=== PATIENT | female | born 1975 | race Hispanic/Latino ===

== ENCOUNTER 2017-12-12 14:45 | Emergency (ER) | payer SELFPAY ==
[2017-12-12] MEDS ORDERED: CATAPRES ONE (15:00)
[2017-12-12] MEDS ORDERED: CATAPRES PO ONE (15:00)
[2017-12-12 15:22] LABS: Basophils # (Auto) 0.1 K/mm3 (0.0-0.1); Basophils % (Auto) 0.9 % (0.0-1.8); Eosinophils # (Auto) 0.2 K/mm3 (0.0-0.4); Eosinophils % (Auto) 2.1 % (0.0-4.3); Hematocrit 44.8 % (30.3-42.9); Hemoglobin 15.3 gm/dl (10.1-14.3); Lymphocytes # (Auto) 2.9 K/mm3 (1.2-5.4); Lymphocytes % (Auto) 26.8 % (13.4-35.0); Mean Corpuscular HGB Conc 34 % (30-34); Mean Corpuscular Hemoglobin 30 pg (28-32); Mean Corpuscular Volume 89 fl (79-97); Monocytes # (Auto) 0.7 K/mm3 (0.0-0.8); Monocytes % (Auto) 6.4 % (0.0-7.3); Platelet Count 384 K/mm3 (140-440); Red Blood Count 5.04 M/mm3 (3.65-5.03); Red Cell Distribution Width 14.8 % (13.2-15.2)
[2017-12-12 15:28] LABS: INR 0.89 (0.87-1.13)
[2017-12-12 15:34] LABS: Alanine Aminotransferase 41 units/L (7-56); BUN/Creatinine Ratio 13; Bilirubin,Direct 0.3 mg/dL (0-0.2); Blood Urea Nitrogen 8 mg/dL (7-17); Calcium 9.4 mg/dL (8.4-10.2); Hemolysis Index 7
--- NOTE | 2017-12-12 18:08 | Cat Scan Report ---
FINAL REPORT EXAM: CT HEAD/BRAIN WO CON HISTORY: Altered Mental Status TECHNIQUE: CT was performed from the foramen magnum through the vertex in the axial plane without the use of intravenous contrast. PRIORS: None. FINDINGS: The bloom/white matter attenuation pattern is normal. There is no mass lesion or mass effect. There are no abnormal extra-axial fluid collections. There is no evidence of acute intracranial hemorrhage or infarct. The ventricles are of normal size and configuration. The skull and orbits are unremarkable. The visualized paranasal sinuses are clear. IMPRESSION: Normal CT of the head.
[2017-12-12] MEDS ORDERED: HumuLIN R IV ONE (22:32)
[2017-12-12] MEDS ORDERED: APRESOLINE IV ONE (22:32)
[2017-12-12] MEDS ORDERED: NACL 0.9% 500 ML 500 ML IV ONE (22:32)
[2017-12-12] MEDS ORDERED: NACL 0.9% 1000 ML 1,000 ML ONE (22:51)
[2017-12-13] MEDS ORDERED: NORMODYNE IV ONE (00:21)
[2017-12-13 00:26] VITALS: BP 140/80
--- NOTE | 2017-12-13 00:26 | Emergency Department Report ---
HPI - General Chief Complaint: High BP Time Seen by Provider: 12/12/17 22:32 - HPI HPI: The patient is a 42-year-old female with a history of hypertension and diabetes , presents for evaluation of dizziness. The patient reports multiple episodes of moderate to severe dizziness for the past one to 2 days, exacerbated with standing or exertion, improved with rest, and associated with transient for seconds blurry vision. The patient denies fever, trauma to the head, headache, neck pain, paresthesias, focal motor weakness, ear pain, tinnitus, chest pain, hemoptysis, dyspnea, abdominal pain, confusion or altered mental status, or recent URI or diarrhea. ED Past Medical Hx - Past Medical History Hx Hypertension: Yes Hx Diabetes: Yes - Surgical History Hx Cholecystectomy: Yes - Social History Smoking Status: Never Smoker Substance Use Type: None - Medications Home Medications: Home Medications Medication Instructions Recorded Confirmed Last Taken Type Hydrochlorothiazide [HCTZ] 25 mg PO QDAY #30 tablet 12/13/17 Unknown Rx Meclizine [Antivert] 25 mg PO TID PRN #20 tablet 12/13/17 Unknown Rx amLODIPine [Norvasc] 5 mg PO DAILY #31 tab 12/13/17 Unknown Rx ED Review of Systems ROS: Stated complaint: BLURRED VISION Other details as noted in HPI Constitutional: reports dizziness denies: fever ENT: denies: throat or neck pain Respiratory: denies: cough, shortness of breath Cardiovascular: denies: chest pain Endocrine: denies unexplained weight loss or gain Gastrointestinal: denies: abdominal pain, nausea Genitourinary: denies: dysuria Musculoskeletal: denies: leg swelling Skin: denies: rash Neurological: denies: headache Hematological/Lymphatic: denies: easy bleeding or easy bruising Psych: denies sadness or hopelessness Physical Exam - Physical Exam Vital Signs: Vital Signs 12/12/17 12/12/17 12/12/17 14:52 15:05 20:05 Temperature 98 F 97.8 F Pulse Rate 89 89 91 H Respiratory 18 18 Rate Blood Pressure 218/119 218/119 197/123 Blood Pressure [Left] O2 Sat by Pulse 97 98 Oximetry 12/12/17 12/12/17 12/12/17 22:17 22:38 23:00 Temperature Pulse Rate 73 73 75 Respiratory 23 18 Rate Blood Pressure 151/90 Blood Pressure 151/90 [Left] O2 Sat by Pulse Oximetry Physical Exam: General: well-nourished, well-developed, no acute distress Head: Normocephalic, atraumatic Eyes: normal sclera ENT: Mucous membranes are pale and dry Neck: No neck stiffness, no cervical adenopathy Respiratory: Breath sounds equal bilaterally, no wheezing, rales, or rhonchi Cardio: S1 and S2 present, no murmurs, rubs, gallops, capillary refill is delayed Abdomen: Normoactive bowel sounds, soft abdomen, no rigidity, no guarding or rebound tenderness Chest WALL/Back: No tenderness to palpation of the chest wall, no CVA tenderness with percussion Musc: No pitting edema Skin: No rash Neuro: alert oriented x4, normal cognition, speech normal, PERRL, EOM intact, no facial drooping, no uvula or tongue deviation on protrusion, no deficit with rotation of neck or shoulder shrug, no obvious gross motor deficit in the upper or lower extremities with flexion or extension at the shoulder, elbow, wrist, hip, knee, or ankle bilaterally, no obvious gross sensation deficit to crude touch or 2 pt discrimination, 2+ symmetric reflexes on DTR testing, no coordination deficit with [id number] or vqki-[id number] testing, patient able to to ambulate without abnormal gait Psych: Normal affect ED Course Vital Signs 12/12/17 12/12/17 12/12/17 14:52 15:05 20:05 Temperature 98 F 97.8 F Pulse Rate 89 89 91 H Respiratory 18 18 Rate Blood Pressure 218/119 218/119 197/123 Blood Pressure [Left] O2 Sat by Pulse 97 98 Oximetry 12/12/17 12/12/17 12/12/17 22:17 22:38 23:00 Temperature Pulse Rate 73 73 75 Respiratory 23 18 Rate Blood Pressure 151/90 Blood Pressure 151/90 [Left] O2 Sat by Pulse Oximetry ED Medical Decision Making - Lab Data Result diagrams: 12/12/17 15:04 12/12/17 15:04 - Medical Decision Making The patient was seen and examined by myself. The patient is placed on a cardiac rehabilitation specialist and continuous pulse ox. On initial evaluation, the patient was found to be in no distress. Evaluation orders were placed. The patient is given 1 L normal saline fluid bolus for treatment of dehydration. Lab results reveal elevated glucose of 257, and elevated RBC, hemoglobin, and hematocrit, consistent with hemoconcentration and exam findings of dehydration, and otherwise labs were grossly unremarkable. The patient is given IV insulin for treatment of hyperglycemia and IV hydralazine for treatment of her elevated blood pressure. EKG was unremarkable as well. On reexamination the patient's blood pressure was found to decrease outside of range concerning for hypertensive emergency. The patient is stable for discharge with outpatient follow-up. The patient is given follow-up and return instructions. The patient expressed understanding and agreed with the plan. The patient is discharged in stable condition. Critical care attestation.: If time is entered above; I have spent that time in minutes in the direct care of this critically ill patient, excluding procedure time. ED Disposition Clinical Impression: Acute hyperglycemia, Dehydration, Orthostatic dizziness, Hypertensive urgency Disposition: DC-01 TO HOME OR SELFCARE Is pt being admited?: No Does the pt Need Aspirin: No Condition: Stable Instructions: Hypertension (ED), Dehydration (ED), Lightheadedness (ED), Diabetic Hyperglycemia (ED) Referrals: ANICETO MCKENNA MD [Primary Care Provider] - 3-5 Days Time of Disposition: 00:27
== END 2017-12-13 00:50 | disposition home or self-care (01) ==
LOC: ED 14:45
DX: E86.0 Dehydration (principal); I16.0 Hypertensive urgency; I10 Essential (primary) hypertension; E11.65 Type 2 diabetes mellitus with hyperglycemia; Z90.49 Acquired absence of other specified parts of digestive tract
CPT/HCPCS: 36415; 70450; 80048; 80074; 82962; 85025; 85610; 85730; 96374; 99284; J0360; J7030; J1815